=== PATIENT | female | born 1940 | race Caucasian/White ===

== ENCOUNTER → 2019-11-09 | Outpatient (CLI) | payer OTHER | LOC: SJCVC 13:22 | DX: I11.0 Hypertensive heart disease with heart failure (principal); I50.32 Chronic diastolic (congestive) heart failure; E78.5 Hyperlipidemia, unspecified; J44.9 Chronic obstructive pulmonary disease, unspecified ==

== ENCOUNTER → 2020-11-12 | Outpatient (CLI) | payer OTHER | LOC: SJCVC 14:03 | PROVIDERS: ATTEND Internal Medicine | DX: R94.31 Abnormal electrocardiogram [ECG] [EKG] (principal); I11.0 Hypertensive heart disease with heart failure; I50.32 Chronic diastolic (congestive) heart failure; E78.5 Hyperlipidemia, unspecified; J44.9 Chronic obstructive pulmonary disease, unspecified; L65.9 Nonscarring hair loss, unspecified; M50.30 Other cervical disc degeneration, unspecified cervical region; M79.7 Fibromyalgia; K21.9 Gastro-esophageal reflux disease without esophagitis; I89.0 Lymphedema, not elsewhere classified; E66.9 Obesity, unspecified; M19.90 Unspecified osteoarthritis, unspecified site; R30.0 Dysuria; I34.0 Nonrheumatic mitral (valve) insufficiency; M85.80 Other specified disorders of bone density and structure, unspecified site; M54.30 Sciatica, unspecified side; B35.4 Tinea corporis; E53.8 Deficiency of other specified B group vitamins; E55.9 Vitamin D deficiency, unspecified; Z87.891 Personal history of nicotine dependence; Z79.82 Long term (current) use of aspirin; Z79.899 Other long term (current) drug therapy; Z82.49 Family history of ischemic heart disease and other diseases of the circulatory system; Z88.5 Allergy status to narcotic agent; Z88.2 Allergy status to sulfonamides ==